=== PATIENT | female | born 1965 | race Caucasian/White ===

== ENCOUNTER 2016-10-01 11:37 | Inpatient (IN) | payer MEDICARE, BC ==
[~2016-10-01] VITALS: Ht 162.6 cm; Wt 110.5 kg
--- NOTE | 2016-10-01 12:05 | NUR ---
RECEIVED TO ROOM 2236 VIA FROM DIRECT ADMIT PER DR. HUBBARD. A/O X3. SKIN IS INTACT WITHOUT REDNESS. DENIES NEEDS.
--- NOTE | 2016-10-01 12:50 | NUR ---
IV SITED TO LEFT FOREARM AFTER ONE ATTEMPT PER RASHARD HARRIS RN. WAITING ON LAB DRAW PRIOR TO STARTING AB.
[2016-10-01] MEDS ORDERED: VALIUM10 MG PO (12:52)
[2016-10-01] MEDS ORDERED: PRAVASTATIN SOD10 MG PO (12:52)
[2016-10-01] MEDS ORDERED: HYDROCODONE-APA1 TAB PO (12:54)
[2016-10-01] MEDS ORDERED: NEURONTIN600 MG PO (12:54)
[2016-10-01] MEDS ORDERED: TOFRANIL50 MG PO (12:55)
[2016-10-01] MEDS ORDERED: GEODON60 MG PO (12:55)
[2016-10-01] MEDS ORDERED: TEMAZEPAM30 MG PO (12:56)
[2016-10-01] MEDS ORDERED: DEPAKOTE500 MG PO (12:57)
[2016-10-01] MEDS ORDERED: ROBAXIN-750750 MG PO (12:57)
[2016-10-01] MEDS ORDERED: BUTALB-APAP-CA1 EACH PO (12:58)
[2016-10-01] MEDS ORDERED: RESTASIS EYE DR30 EA EACH EYE (12:58)
[2016-10-01] MEDS ORDERED: PROAIR HFA8.5 GM INH (12:59)
[2016-10-01] MEDS ORDERED: ZYPREXA15 MG PO (12:59)
[2016-10-01] MEDS ORDERED: CALAN SR120 MG PO (12:59)
[2016-10-01] MEDS ORDERED: ADDERALL 20 MG20 M1 PO (13:00)
[2016-10-01 13:26] VITALS: BP 125/60; Ht 162.6 cm; Wt 110.5 kg
[2016-10-01 13:54] LABS: BASOPHILS 0.3 % (0.0-2.0); EOSINOPHILS 2.1 % (0-7); HEMATOCRIT 39.5 % (36.0-48.0); HEMOGLOBIN 12.7 g/dL (12-16); IMMATURE GRANULOCYTES 0.4 % (0-5); LYMPHOCYTES 18.2 % (15-50); MCH 32.4 pg (26.0-34.0); MCHC 32.2 g/dL (31.0-37.0); MCV 100.8 fL (80.0-100.0); MEAN PLATELET VOLUME 9.3 fL (7.4-10.4); MONOCYTES 9.5 % (2-11); NEUTROPHILS 69.5 % (40-80); RBC 3.92 10x6/uL (4.00-5.40); RDW 14.9 % (11.5-14.5); WBC 17.2 10x3/uL (4.8-10.8)
[2016-10-01 14:01] LABS: PLATELET COUNT 290 10x3/uL (130-400)
[2016-10-01 14:18] LABS: ALBUMIN 3.5 g/dL (3.4-5.0); ALKALINE PHOSPHATASE 99 U/L (46-116); ALT (SGPT) 31 U/L (10-68); CALC OSMOLALITY 274 mosm/kg (275-300); CALCIUM 8.2 mg/dL (8.5-10.1); CARBON DIOXIDE 30.9 mmol/L (21.0-32.0); CHLORIDE - SERUM 100 mmol/L (98-107); CREATININE - SERUM 0.7 mg/dL (0.6-1.3); GLUCOSE 128 mg/dL (74-106); POTASSIUM - SERUM 4.4 mmol/L (3.5-5.1); PROTEIN - SERUM 6.3 g/dL (6.4-8.2); SODIUM 137 mmol/L (136-145); UREA NITROGEN 9 mg/dL (7-18); eGFR NON AFRICAN AMERICAN > 90 mL/min (90-120)
[2016-10-01 15:18] LABS: T4 THYROXINE 7.1 ug/dL (4.7-13.3); THYROID STIMULATING HORMONE 2.06 uIU/mL (0.36-3.74)
[2016-10-01 16:48] VITALS: BP 125/66
--- NOTE | 2016-10-01 18:54 | NUR ---
SLEPT THROUGH SUPPER. TRAY AT BEDSIDE. NO CHANGES NOTED. DENIES NEEDS.
[2016-10-01 19:00] VITALS: BP 159/83
--- NOTE | 2016-10-01 22:55 | NUR ---
REC'D.DURING WALKING ROUNDS UP IN BATHROOM.UA OBTAINED CLEAN CATCH.WITH MINIMAL SOB ON ACTIVITY.WILL CONTINUE TO MONITOR FOR ANY CHGES. IN RESP. STATUS AND FOLLOW CURRENT PLAN OF CARE.
[2016-10-02] VITALS: BP 147/68
[2016-10-02 02:21] LABS: APPEARANCE HAZY (CLEAR); BILIRUBIN NEGATIVE (NEGATIVE); COLOR YELLOW (YELLOW); GLUCOSE NEGATIVE (NEGATIVE); KETONE NEGATIVE (NEGATIVE); LEUKOCYTE ESTERASE NEGATIVE (NEGATIVE); NITRITE NEGATIVE (NEGATIVE); PROTEIN TRACE mg/dL (NEGATIVE); SPECIFIC GRAVITY 1.025 (1.005-1.020); UROBILINOGEN NORMAL (NORMAL)
[2016-10-02 02:27] LABS: BACTERIA MANY /hpf (NONE SEEN); MUCUS <1+ /lpf (NONE SEEN); WHITE CELLS - URINE 0-5 /hpf (0-5)
[2016-10-02 04:00] VITALS: BP 142/75
[2016-10-02 05:57] LABS: BASOPHILS 0.1 % (0.0-2.0); EOSINOPHILS 0.2 % (0-7); HEMOGLOBIN 11.6 g/dL (12-16); IMMATURE GRANULOCYTES 0.4 % (0-5); MCH 32.6 pg (26.0-34.0); MCHC 32.2 g/dL (31.0-37.0); MCV 101.1 fL (80.0-100.0); MEAN PLATELET VOLUME 9.2 fL (7.4-10.4); MONOCYTES 7.5 % (2-11); NEUTROPHILS 80.8 % (40-80); PLATELET COUNT 258 10x3/uL (130-400); RBC 3.56 10x6/uL (4.00-5.40); RDW 14.8 % (11.5-14.5)
[2016-10-02 05:59] LABS: WBC 10.4 10x3/uL (4.8-10.8)
[2016-10-02 06:07] LABS: ALBUMIN 2.8 g/dL (3.4-5.0); ALKALINE PHOSPHATASE 82 U/L (46-116); CALC OSMOLALITY 270 mosm/kg (275-300); CALCIUM 7.9 mg/dL (8.5-10.1); CARBON DIOXIDE 32.9 mmol/L (21.0-32.0); CHLORIDE - SERUM 98 mmol/L (98-107); CREATININE - SERUM 0.6 mg/dL (0.6-1.3); GLUCOSE 146 mg/dL (74-106); POTASSIUM - SERUM 4.2 mmol/L (3.5-5.1); PROTEIN - SERUM 6.2 g/dL (6.4-8.2); SODIUM 135 mmol/L (136-145); UREA NITROGEN 7 mg/dL (7-18); eGFR NON AFRICAN AMERICAN > 90 mL/min (90-120)
[2016-10-02 06:09] LABS: ALT (SGPT) 22 U/L (10-68)
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
[2016-10-02 08:31] VITALS: BP 99/51
--- NOTE | 2016-10-02 09:00 | NUR ---
PT LETHARGIC AT THIS TIME ALL MEDS HELD. THIS NURSE FOUND PILLS IN UNLABELED BOTTLE WELL MORE PILLS IN A CONTAINER UNMARKED IN ROOM AND BEDSIDE TABLE. SENT TO PHARMACY FOR IDENTIFICATION. WHEN AROUSED PT DENIED TAKING ANY MEDS FROM UNMARKED BOTTLE. YELLED AT THIS NURSE FOR ASKING AND STATED THAT SHE WOULD TAKE A DRUG SCREEN ANYTIME. EXPLAINED TO PT THAT WE WERE NON ACCUSATORY JUST CONCERNED THAT SHE HAD DECREASED LOC FROM EARLIER THIS SHIFT.
[2016-10-02 12:59] VITALS: BP 119/63
--- NOTE | 2016-10-02 15:10 | NUR ---
Patient Name: VONDA ORO Admission Status: Elective Accout number: [id number] Admission Date: 10-01-2016 : 1965 Admission Diagnosis: Attending: TAWANA Current LOS: 1 Anticipated DC Date: 10-04-2016 Planned Disposition: Home Primary Insurance: MEDICARE A & B Discharge Planning Comments: CM MET WITH PATIENT REGARDING D/C NEEDS AND PLANS. PATIENT STATED SHE LIVES WITH HER SPOUSE GREGORY AND HE OR FAMILY WILL PICK HER UP AT DISCHARGE. PATIENT STATED THERE ARE 3 STEPS W/RAILS TO ENTER HOME AND 1 FLIGHT W/RAILS DOWNSTAIRS IN HOME WHICH PATIENT DOES NOT USE. PATIENTS PCP IS DR. HUBBARD AND PHARMACY IS [facility]. PATIENT STATED SHE IS INDEPENDENT WITH HER CARE AND HAS NO DME AT HOME. PATIENT HAS NOT HAD HOME HEALTH AND HAS REFUSED IT AT THIS TIME. CM WILL CONTINUE TO FOLLOW PATIENT WITH D/C NEEDS AND PLANS. PCP DR. [facility]- [phone] GREGORY (SPOUSE) [phone] Fire Sprinkler Inspector: Arely Heredia Is the patient Alert and Oriented? Yes 0 * How many steps to enter\exit or inside your home? 3 W/RAILS 0 * PCP DR. HUBBARD 0 * Pharmacy [facility] 0 * Preadmission Environment Home with Family 0 * ADLs Independent 0 * Equipment None 0 * List name and contact numbers for known caregivers / representatives who currently or will assist patient after discharge: GREGORY (SPOUSE) [phone] 0 * Community resources currently utilized None 0 * Additional services required to return to the preadmission environment? Yes 0 * Can the patient safely return to the preadmission environment? Yes 0 * Has this patient been hospitalized within the prior 30 days at any hospital? No 0 Grand Total: 0
--- NOTE | 2016-10-02 15:30 | NUR ---
REMOVED 4 VAPOR DEVICES FROM PT ROOM. LABLED AND BAGGED PLACED IN CASSETTE. PT STILL HARD TO AROUSE STATES I NEED PAIN MEDS CAUSE I HAVE A HEADACHE. EXPLAINED TO PT THAT SHE HAS BEED LETHARGIC ALL DAY LAB WAS DRAWN AND FSBS DONE WITH NO REACTION OR RESPONSE FROM PT. PT DENIES SUCH ACTION HOWEVER HAS BEEN VERIFIED PER CASE MANAGMENT AND RESPIRATORY THERAPY HOW LETHARGIC PT IS
--- NOTE | 2016-10-02 16:27 | NUR ---
PT REMAINS HARD TO AROUSE
[2016-10-02 16:29] VITALS: BP 114/55
[2016-10-02 19:00] VITALS: BP 120/53
--- NOTE | 2016-10-03 02:40 | NUR ---
REC'D. DURING WALKING ROUNDS ANGRY STATES THEY TOOK MY STUFF AND THOUGHT I WAS TAKING MY OWN MEDS FROM HOME AND I WASN'T.WILL CONTINUE TO MONITOR FOR ANY CHGES IN RESP. STATUS AND FOLLOW CURRENT PLAN OF CARE
[2016-10-03 04:00] VITALS: BP 109/65
[2016-10-03 05:01] LABS: BASOPHILS 0.4 % (0.0-2.0); EOSINOPHILS 3.5 % (0-7); HEMATOCRIT 35.4 % (36.0-48.0); HEMOGLOBIN 10.9 g/dL (12-16); IMMATURE GRANULOCYTES 0.6 % (0-5); LYMPHOCYTES 39.4 % (15-50); MCH 31.6 pg (26.0-34.0); MCHC 30.8 g/dL (31.0-37.0); MCV 102.6 fL (80.0-100.0); MEAN PLATELET VOLUME 9.1 fL (7.4-10.4); MONOCYTES 9.6 % (2-11); NEUTROPHILS 46.5 % (40-80); PLATELET COUNT 249 10x3/uL (130-400); RBC 3.45 10x6/uL (4.00-5.40); RDW 15.2 % (11.5-14.5); WBC 8.2 10x3/uL (4.8-10.8)
[2016-10-03 05:21] LABS: ALBUMIN 2.6 g/dL (3.4-5.0); ALKALINE PHOSPHATASE 73 U/L (46-116); ALT (SGPT) 22 U/L (10-68); BILIRUBIN - TOTAL 0.07 mg/dL (0.2-1.3); CALC OSMOLALITY 282 mosm/kg (275-300); CALCIUM 8.2 mg/dL (8.5-10.1); CARBON DIOXIDE 32.3 mmol/L (21.0-32.0); CHLORIDE - SERUM 106 mmol/L (98-107); CREATININE - SERUM 0.7 mg/dL (0.6-1.3); GLUCOSE 104 mg/dL (74-106); POTASSIUM - SERUM 3.9 mmol/L (3.5-5.1); PROTEIN - SERUM 5.3 g/dL (6.4-8.2); SODIUM 143 mmol/L (136-145); UREA NITROGEN 7 mg/dL (7-18); eGFR NON AFRICAN AMERICAN > 90 mL/min (90-120)
[2016-10-03 08:33] VITALS: BP 129/66
--- NOTE | 2016-10-03 09:13 | CN ---
PATIENT NAME:VONDA VILLALTA MEDICAL RECORD: [id number] : 69 LOCATION:[id number] ADMIT DATE: 10/01/16 ACCOUNT: [id number] CONSULTING PHYSICIAN: FRANNIE CUELLAR MD REFERRING PHYSICIAN: JOSE ALEJANDRO HUBBARD M.D. DATE OF CONSULTATION: 10/01/2016 Pulmonary Consultation CONSULT REQUESTING PHYSICIAN: Lela Butler MD REASON FOR CONSULTATION: Acute exacerbation of chronic obstructive pulmonary disease, possible pneumonia. HISTORY OF PRESENT ILLNESS: Ms. Villalta who is a very poor historian, very sleepy now. The patient says she is sick for the last few days. She is wheezing. She has shortness of breath with mild exertion. She also has hoarseness of her voice. She was seen in Dr. Hubbard's office today and admitted for possible pneumonia. Denies any fever or chill. There are no night sweats. There is no associated diarrhea. REVIEW OF SYSTEMS: Mainly in the history of present illness. PAST MEDICAL HISTORY: 1. Multiple psych issues. 2. Smoking, nicotine dependence. 3. Chronic obstructive pulmonary disease. 4. Hypertension. 5. Hyperlipidemia. 6. Fibromyalgia. 7. History of chronic bronchitis. 8. Peptic ulcer disease. 9. Gastroesophageal reflux disease. 10. Osteoarthritis. 11. Hypothyroidism. ALLERGIES: There is no known drug allergy, possible that she is allergic to prednisone, she says she becomes very hyper. PERSONAL AND SOCIAL HISTORY: The patient is still an everyday smoker. She is a nondrinker. FAMILY HISTORY: Noncontributory. PHYSICAL EXAMINATION: GENERAL: Now, the patient is lying comfortably. She is not in acute distress, but she is very sleepy and lethargic. VITAL SIGNS: The blood pressure is 125/60, pulse is 111, respirations 20, temperature ____, and SPO2 is 90% on 2 liters nasal cannula. HEENT: Conjunctivae are pink. Sclerae nonicteric. NECK: Supple. No JVD. CHEST: Excursion is minimal on both sides. There is wheeze on forceful expiration. HEART: Rhythm regular, normal sound, no murmur. ABDOMEN: Soft, bowel sounds present. No hepatosplenomegaly. CONSULT REPORT [id number] VONDA VILLALTA RECTAL: Deferred. EXTREMITIES: No cyanosis, no clubbing, no pedal edema. SKIN: Warm, normal turgor. CENTRAL NERVOUS SYSTEM: The patient is very sleepy, but she is arousable. There is no obvious cranial nerve abnormality. The gait was not tested. IMAGING: Chest radiograph: There is no acute infiltrate, no hyperinflation. LABORATORY DATA: CBC: The WBC is 17.2, hemoglobin 12.7, hematocrit 39.5, and the platelet count 290. Chemistry: Sodium 137, potassium 4.4, BUN is 9, creatinine is 0.7, glucose 128, and the D-dimer is 0.42. IMPRESSION: 1. Acute exacerbation of chronic obstructive pulmonary disease. 2. Tracheobronchitis. 3. Leukocytosis secondary tracheobronchitis. 4. Tobacco dependence syndrome. 5. Laryngitis. 6. Gastroesophageal reflux disease. RECOMMENDATIONS: 1. I will start methylprednisolone IV. We will watch her closely for any psych issue. 2. Adjust the dose of Levaquin to 750. 3. Albuterol/ipratropium nebulizer. 4. Start on Brovana and budesonide nebulizer. 5. Supplemental oxygen as required. Follow up labs in the morning. 6. DVT prophylaxis. Follow up on the ultrasound of the lower extremity. Dr. Hubbard, once again thank you for involving me in the care of Ms. Villalta. TRANSINT:[id number] Voice Confirmation ID: [id number] DOCUMENT ID: [id number] FRANNIE CUELLAR MD at 0913 CC: JOSE ALEJANDRO HUBBARD M.D. [id number] DICTATION DATE: 10/01/16 1504 ASSOCIATE MEDIA DIRECTOR: 10/01/16 1539 ADM IN [facility] [address] [id number]
[2016-10-03 11:55] VITALS: BP 123/61
[2016-10-03 16:53] VITALS: BP 131/68
[2016-10-03 17:26] LABS: UDS - AMPHET NEGATIVE QUAL (NEGATIVE); UDS - BARB POSITIVE QUAL (NEGATIVE); UDS - BENZO POSITIVE QUAL (NEGATIVE); UDS - COCAINE NEGATIVE QUAL (NEGATIVE); UDS - METH NEGATIVE QUAL (NEGATIVE); UDS - OPIATE POSITIVE QUAL (NEGATIVE); UDS - PCP NEGATIVE QUAL (NEGATIVE); UDS - THC NEGATIVE QUAL (NEGATIVE)
--- NOTE | 2016-10-03 18:44 | NUR ---
PATIENT REQUESTING FIORICET. LIGHTS ARE OFF IN ROOM, PT HAS SHEET OVER HER FACE TO BLOCK LIGHT.
[2016-10-03 19:00] VITALS: BP 115/70
[2016-10-04 04:00] VITALS: BP 110/72
[2016-10-04 05:51] LABS: BASOPHILS 0.5 % (0.0-2.0); EOSINOPHILS 5.5 % (0-7); HEMATOCRIT 38.5 % (36.0-48.0); HEMOGLOBIN 12.1 g/dL (12-16); IMMATURE GRANULOCYTES 0.8 % (0-5); LYMPHOCYTES 34.8 % (15-50); MCH 31.7 pg (26.0-34.0); MCHC 31.4 g/dL (31.0-37.0); MCV 100.8 fL (80.0-100.0); MEAN PLATELET VOLUME 9.3 fL (7.4-10.4); MONOCYTES 11.9 % (2-11); NEUTROPHILS 46.5 % (40-80); PLATELET COUNT 282 10x3/uL (130-400); RBC 3.82 10x6/uL (4.00-5.40); RDW 14.7 % (11.5-14.5); WBC 7.9 10x3/uL (4.8-10.8)
[2016-10-04 06:18] LABS: ALBUMIN 2.8 g/dL (3.4-5.0); ALKALINE PHOSPHATASE 75 U/L (46-116); ALT (SGPT) 22 U/L (10-68); CALC OSMOLALITY 283 mosm/kg (275-300); CARBON DIOXIDE 29.7 mmol/L (21.0-32.0); CHLORIDE - SERUM 106 mmol/L (98-107); CREATININE - SERUM 0.7 mg/dL (0.6-1.3); GLUCOSE 109 mg/dL (74-106); POTASSIUM - SERUM 4.4 mmol/L (3.5-5.1); PROTEIN - SERUM 5.7 g/dL (6.4-8.2); SODIUM 143 mmol/L (136-145); UREA NITROGEN 7 mg/dL (7-18); eGFR NON AFRICAN AMERICAN > 90 mL/min (90-120)
--- NOTE | 2016-10-04 08:00 | NUR ---
WITHOUT DISTRESS.DENIES NEEDS.CALL LIGHT IN REACH
--- NOTE | 2016-10-04 08:00 | NUR ---
PT AWAKE AND ALERT NO ACUTE DISTRESS NOTED VOICES ALL NEEDS TO STAFF WITH NO DIFFICULTY NOTED. MOBILE PER SELF AMBULATION WITH STEADY GAIT IS UP ADLIB. PIV PATENT TO FLUSH. O2 @ 2LPM VIA NASAL CANULA WHEN PT CHOOSES TO WEAR IT. PT HAS HISTORY THIS STAY OF REFUSING MEDS AND ATTEMPTING TO MANIPULATE STAFF WITH MEDICATION TIMES.
[2016-10-04 08:04] VITALS: BP 144/72
--- NOTE | 2016-10-04 08:18 | NUR ---
PT MARYBEL CHOI STATES I TAKE THAT AT NIGHT I WILL NOT TAKE IT IN THE MORNING.
--- NOTE | 2016-10-04 10:11 | NUR ---
RESTING QUIETLY IN BED WITH EYES CLOSED RESPS EVEN AND NON LABORED. CALL LIGHT IN REACH SIDE RAILS UP X 2
[2016-10-04 11:18] LABS: HEPATITIS C ANTIBODY <0.1 (0.0-0.9)
[2016-10-04 11:43] VITALS: BP 131/70
[2016-10-04] MEDS ORDERED: BROVANA15 MCG/2 M INH (11:46)
[2016-10-04] MEDS ORDERED: IPRAT-ALBUT 0.5-3 ML UPD (11:47)
[2016-10-04] MEDS ORDERED: PULMICORT0.5 MG/21 UPD (11:48)
[2016-10-04] MEDS ORDERED: LEVAQUIN750 MG PO (11:48)
[2016-10-04] MEDS ORDERED: MEDROL DOSE PACK4 MG PO (11:49)
--- NOTE | 2016-10-04 12:31 | NUR ---
DISCHARGE ORDERS RECIEVED PER DR IRIZARRY AWAITING DR CUELLAR TO SIGN OFF ON DISCHARGE.
--- NOTE | 2016-10-04 13:08 | NUR ---
CM REASSESSMENT NOTE: PATIENT IS DISCHARGING HOME TODAY. FAMILY IS DRIVING HER HOME AND PATIENT DENIES ANY NEEDS AT DISCHARGE.
--- NOTE | 2016-10-04 13:29 | NUR ---
PT DISCHARGED AT THIS TIME EXPRESSED UNDERSTANDING OF D/C INSTRUCTIONS AND NEW MEDICATIONS. IV D/C TIP INTACT. LEFT UNIT VIA WHEELCHAIR PER STAFF TO PRIVATE VEHICLE
--- NOTE | 2016-11-15 15:43 | DS ---
PATIENT:VONDA ORO :69 MEDICAL RECORD: [id number] DISCHARGE SUMMARY ADMISSION DATE: 10/01/16 DISCHARGE DATE: 10/04/16 DATE OF ADMISSION: 10/01/2016 DATE OF DISCHARGE: 10/04/2016 DIAGNOSES: 1. Pneumonia. 2. Hypoxia. 3. Nicotine dependency. 4. Hyperlipidemia. 5. Hypertension. 6. Peptic ulcer disease. CONSULTS: Bhargav Christopher MD. IMAGING STUDIES: 1. Venous Doppler, which was negative for deep vein thrombosis. 2. Chest x-ray, which showed no acute cardiopulmonary disease. 3. Ultrasound of the liver which shows hepatomegaly with fatty infiltrates. HOSPITAL COURSE: The full H&P is listed elsewhere in the chart for this female patient who was admitted with a several day history of wheezing and shortness of breath, was noted to have pneumonia and was admitted for IV antibiotic therapy. She was started on IV steroids, DuoNeb updrafts. DVT prophylaxis was instituted and broad-spectrum antibiotic therapy, which included levofloxacin. She did have GI and DVT prophylaxis. Her clinical condition began to improve. Her antibiotic therapy was deescalated. She was thought to be stable for discharge to home to follow back up in the outpatient setting with Dr. Campoverde and to see Dr. Christopher in 2-4 weeks. See med rec. TRANSINT:[id number] Voice Confirmation ID: [id number] DOCUMENT ID: [id number] Dictated By: RUSLAN SHARMA I have interviewed/examined the above patient and agree with these documented findings. KENRICK IRIZARRY MD at 1515 at 1543 CC: [id number] DICTATION DATE: 11/14/16 0845 EMPLOYMENT CLERK: 11/14/16 2347 DIS IN 10/04/16 [facility] [address] [place] [address]
== END 2016-10-04 13:30 | disposition home or self-care (01) | DRG 190 ==
LOC: D.OPS 11:37 → D.MS 11:43
PROVIDERS: Family Medicine; ADMIT Family Medicine
DX: J44.0 Chronic obstructive pulmonary disease with (acute) lower respiratory infection (principal); J18.9 Pneumonia, unspecified organism; F17.203 Nicotine dependence unspecified, with withdrawal; Z68.41 Body mass index [BMI] 40.0-44.9, adult; R09.02 Hypoxemia; J44.1 Chronic obstructive pulmonary disease with (acute) exacerbation; M79.7 Fibromyalgia; I10 Essential (primary) hypertension; E03.9 Hypothyroidism, unspecified; E78.5 Hyperlipidemia, unspecified; K21.9 Gastro-esophageal reflux disease without esophagitis; M19.90 Unspecified osteoarthritis, unspecified site; E11.9 Type 2 diabetes mellitus without complications; E66.01 Morbid (severe) obesity due to excess calories

== ENCOUNTER → 2017-03-13 08:31 | Outpatient (CLI) | payer SELFPAY ==
[2016-10-01 13:26] VITALS: BMI 41.8
[~2017-03-13 08:31] MED LIST: ADDERALL 20 MG20 M1 PO; BROVANA15 MCG/2 M INH; BUTALB-APAP-CA1 EACH PO; CALAN SR120 MG PO; DEPAKOTE500 MG PO; GEODON60 MG PO; HYDROCODONE-APA1 TAB PO; IPRAT-ALBUT 0.5-3 ML UPD; LEVAQUIN750 MG PO; MEDROL DOSE PACK4 MG PO; NEURONTIN600 MG PO; PRAVASTATIN SOD10 MG PO; PROAIR HFA8.5 GM INH; PULMICORT0.5 MG/21 UPD; RESTASIS EYE DR30 EA EACH EYE; ROBAXIN-750750 MG PO; TEMAZEPAM30 MG PO; TOFRANIL50 MG PO; VALIUM10 MG PO; ZYPREXA15 MG PO
--- NOTE | 2017-03-13 09:46 | NUR ---
Nutrition education for bariatric surgery: Pt seems to be under the influence of pain medication. Pt is slurring her words and seems to be falling asleep at times. Pt is having a lot of trouble understanding what I am saying. Pt states she has chronic pain and is on a lot of medication for it. Pt states she has not eaten a nonstarchy vegetable for 30 years. Pt states she eats chocolate, ice cream and any other sweets for meals instead of eating meals. Pt likes pasta, rice, potatoes and meat. Pt is not very happy with me as I am telling her the diet progression after surgery. Pt is very argumentative with me. Pt is very negative. Ht: 5'4" Wt: 245# IBW: 120# +/-10% BMI: 42.1 PMH: Fibromyalgia, chronic pain, bipolar Reviewed post-op diet phases. Reviewed food lists for all phases. Discussed liquids between meals; 1/2 cup meal size; pureed foods; protein needs; vitamin, mineral supplements; stomach size; pouch stretching; no sweets or high fat foods; no alcohol; reviewed sample menus. Pt remains very unhappy with all the restrictions re: post-op diet. Pt feels she will not be able to follow such a strict eating plan. RDN again reviewed pre/post op diet and reinforced that these changes must be made in order to be successful with residential weight loss and maintenance. Questions answered. RDN feels pt is not going to be successful with residential weight loss due to her negative attitude about diet changes. Provided pt with printed diet information and RDN name and phone number. RDN will be available if needed. Thank you for the consult.
== END ==
LOC: D.FANS 08:31
DX: Z01.818 Encounter for other preprocedural examination (principal)

== ENCOUNTER → 2017-05-23 16:52 | Outpatient (CLI) | payer MEDICARE, BC ==
[2016-10-01 13:26] VITALS: BMI 41.8
== END | disposition home or self-care (01) ==
LOC: D.MAMMO 08:15
DX: Z12.31 Encounter for screening mammogram for malignant neoplasm of breast (principal)

== ENCOUNTER → 2017-06-25 12:49 | Outpatient (CLI) | payer MEDICARE, BC ==
[2016-10-01 13:26] VITALS: BMI 41.8
[~2017-06-25 12:49] MED LIST changes: +BIOTIN5 MG PO; +VITAMIN D250000 UNIT PO; +ZEBETA10 MG PO; +ZIAC 10-6.25 MG1 TAB PO
== END | disposition home or self-care (01) ==
LOC: D.RT 05-29 11:00
DX: J44.9 Chronic obstructive pulmonary disease, unspecified (principal)

== ENCOUNTER → 2017-07-09 10:44 | Outpatient (CLI) | payer MEDICARE, BC ==
[2016-10-01 13:26] VITALS: BMI 41.8
[2017-07-09 11:04] LABS: BASOPHILS 0.2 % (0-2); EOSINOPHILS 1.3 % (0-7); HEMATOCRIT 43.4 % (36.0-48.0); HEMOGLOBIN 14.2 g/dL (12-16); IMMATURE GRANULOCYTES 0.4 % (0-5); LYMPHOCYTES 11.6 % (15-50); MCH 32.3 pg (26.0-34.0); MCHC 32.7 g/dL (31.0-37.0); MCV 98.6 fL (80.0-100.0); MEAN PLATELET VOLUME 9.3 fL (7.4-10.4); MONOCYTES 6.7 % (2-11); NEUTROPHILS 79.8 % (40-80); PLATELET COUNT 239 10x3/uL (130-400); RDW 13.8 % (11.5-14.5); WBC 16.6 10x3/uL (4.8-10.8)
[2017-07-09 11:36] LABS: CALC OSMOLALITY 278 mosm/kg (275-300); CALCIUM 9.2 mg/dL (8.5-10.1); CARBON DIOXIDE 28.2 mmol/L (21.0-32.0); CHLORIDE - SERUM 102 mmol/L (98-107); CHOL - HDL RATIO 5.6 ratio (2.3-4.1); CHOLESTEROL, TOTAL 228 mg/dL (0-200); CREATININE - SERUM 0.6 mg/dL (0.6-1.3); GLUCOSE 124 mg/dL (74-106); HDL CHOLESTEROL 41 mg/dL (32-96); LDL CHOLESTEROL 108 mg/dL (0-100); LDL-HDL RATIO 2.6 ratio (1.5-3.5); POTASSIUM - SERUM 4.3 mmol/L (3.5-5.1); SODIUM 140 mmol/L (136-145); T4 THYROXINE 7.4 ug/dL (4.7-13.3); THYROID STIMULATING HORMONE 1.83 uIU/mL (0.36-3.74); TRIGLYCERIDE 398 mg/dL (30-200); UREA NITROGEN 9 mg/dL (7-18); eGFR NON AFRICAN AMERICAN > 90 mL/min (90-120)
[2017-07-09 11:43] LABS: HELICOBACTER PYLORI IGG NEGATIVE (NEGATIVE)
[2017-07-10 06:15] LABS: FOLATE (FOLIC ACID) - SERUM 4.9 ng/mL (>3.0)
[2017-07-10 08:17] LABS: VITAMIN D 25 HYDROXY 32.6 ng/mL (30.0-100.0)
== END | disposition home or self-care (01) ==
LOC: D.LAB 10:44
PROVIDERS: Surgery
DX: I10 Essential (primary) hypertension (principal); E78.5 Hyperlipidemia, unspecified; K21.9 Gastro-esophageal reflux disease without esophagitis; E66.01 Morbid (severe) obesity due to excess calories

== ENCOUNTER → 2017-07-17 10:11 | Outpatient (CLI) | payer MEDICARE, BC ==
[2016-10-01 13:26] VITALS: BMI 41.8
== END | disposition home or self-care (01) ==
LOC: D.RAD 10:00
DX: E66.01 Morbid (severe) obesity due to excess calories (principal)

== ENCOUNTER 2017-07-24 07:00 | Day surgery (SDC) | payer MEDICARE, BC ==
[~2017-07-24] VITALS: Ht 162.6 cm; Wt 110.0 kg
[~2017-07-24 07:00] MED LIST changes: -BIOTIN5 MG PO; -VITAMIN D250000 UNIT PO; -ZEBETA10 MG PO; -ZIAC 10-6.25 MG1 TAB PO
[2017-07-24] MEDS ORDERED: VITAMIN D250000 UNIT PO (08:06)
[2017-07-24] MEDS ORDERED: BIOTIN5 MG PO (08:06)
[2017-07-24 08:07] LABS: HEMATOCRIT 40.8 % (36.0-48.0); HEMOGLOBIN 13.3 g/dL (12-16); MCH 32.3 pg (26.0-34.0); MCHC 32.6 g/dL (31.0-37.0); MEAN PLATELET VOLUME 9.5 fL (7.4-10.4); RBC 4.12 10x6/uL (4.00-5.40); RDW 14.2 % (11.5-14.5); WBC 9.6 10x3/uL (4.8-10.8)
[2017-07-24 08:08] VITALS: BP 148/86; Ht 162.6 cm; Wt 110.0 kg
--- NOTE | 2017-07-24 10:12 | NUR ---
1005 BACK FROM EGD RESP EVEN AND NONLABORED. HOB ELEVATEDD. ICE WATER SERVED. C/L IN REACH.
--- NOTE | 2017-07-24 12:31 | OP ---
PATIENT NAME: VONDA ORO MEDICAL RECORD: [id number] :69 LOCATION:D.[facility] ADMISSION DATE: SURGEON: NERY SHAH MD DATE OF OPERATION: 07/24/2017 SURGEON: Nery Shah MD PREOPERATIVE DIAGNOSES: 1. Gastroesophageal reflux disease. 2. Morbid obesity, body mass index 40-44.9. 3. Essential hypertension. 4. Hyperlipidemia. POSTOPERATIVE DIAGNOSES: 1. Gastroesophageal reflux disease. 2. Morbid obesity, body mass index 40-44.9. 3. Essential hypertension. 4. Hyperlipidemia. PROCEDURE PERFORMED: EGD with biopsy. ANESTHESIA: Total intravenous anesthesia. Case was contaminated. ESTIMATED BLOOD LOSS: Minimal. OPERATIVE COURSE: After consent was obtained, the patient was taken to the endoscopy suite. A timeout was taken to confirm the correct patient and procedure. A bite block was placed. Hurricaine [place] was administered. The patient was placed in left lateral decubitus position. After adequate anesthesia had been given, the scope was passed through the bite block ad into the posterior oropharynx under direct endoscopic vision. It was advanced posterior to the epiglottis, advanced through the esophagus and the stomach. The stomach was insufflated. The scope was passed through the pylorus. The duodenum was inspected. The duodenum appeared within normal limits. Multiple cold biopsies were taken. The scope was withdrawn to the prepyloric region. There was some mild antritis noted. Multiple biopsies were taken. The stomach was inspected, it appeared to be within normal limits. Multiple cold biopsies were taken. Minimal gastritis was noted. The scope was retroflexed. There was a possible small sliding hiatal hernia. The stomach was desufflated. The scope was withdrawn to the GE junction. There was grade I esophagitis at the GE junction, there was some abnormality of the Z line and minimal linear ulcerations. Multiple biopsies were taken at GE junction. Next, the scope was slowly withdrawn to the esophagus. There was no abnormality to the esophagus identified. At this time, the scope was removed and the procedure was terminated. At the end of the procedure, all needle and instrument counts were correct. No complications occurred. The patient tolerated the procedure well. Postoperatively, she was transferred to the recovery room in satisfactory condition. TRANSINT:[id number] Voice Confirmation ID: [id number] DOCUMENT ID: [id number] OPERATIVE REPORT [id number] VONDA ORO NERY SHAH MD at 1231 CC: [id number] DICTATION DATE: 07/24/17 0951 COLOR RECEIVER: 07/24/[address] [place] [address] 07/24/17 [id number] [place] [address]
== END 2017-07-24 10:42 | disposition home or self-care (01) ==
LOC: D.OPS 07:00
PROVIDERS: Surgery
DX: K21.0 Gastro-esophageal reflux disease with esophagitis (principal); K29.70 Gastritis, unspecified, without bleeding; E66.01 Morbid (severe) obesity due to excess calories; Z68.41 Body mass index [BMI] 40.0-44.9, adult; I10 Essential (primary) hypertension; E78.5 Hyperlipidemia, unspecified; Z01.812 Encounter for preprocedural laboratory examination

== ENCOUNTER 2017-08-28 05:18 | Inpatient (IN) | payer MEDICARE, BC ==
[2017-08-27 10:59] LABS: CALC OSMOLALITY 276 mosm/kg (275-300); CALCIUM 9.4 mg/dL (8.5-10.1); CARBON DIOXIDE 34.1 mmol/L (21.0-32.0); CHLORIDE - SERUM 101 mmol/L (98-107); CREATININE - SERUM 0.7 mg/dL (0.6-1.3); GLUCOSE 106 mg/dL (74-106); HEMATOCRIT 41.4 % (36.0-48.0); HEMOGLOBIN 13.6 g/dL (12-16); MCH 32.5 pg (26.0-34.0); MCHC 32.9 g/dL (31.0-37.0); MEAN PLATELET VOLUME 9.6 fL (7.4-10.4); POTASSIUM - SERUM 4.3 mmol/L (3.5-5.1); RBC 4.18 10x6/uL (4.00-5.40); RDW 13.9 % (11.5-14.5); SODIUM 139 mmol/L (136-145); UREA NITROGEN 11 mg/dL (7-18); WBC 10.3 10x3/uL (4.8-10.8); eGFR NON AFRICAN AMERICAN > 90 mL/min (90-120)
[~2017-08-28] VITALS: Ht 162.6 cm; Wt 110.0 kg
[~2017-08-28 05:18] MED LIST changes: +BIOTIN5 MG PO; +VITAMIN D250000 UNIT PO
[2017-08-28] MEDS ORDERED: ZIAC 10-6.25 MG1 TAB PO (07:45)
[2017-08-28 07:59] VITALS: BP 85/56; BMI 42.0
--- NOTE | 2017-08-28 10:50 | NUR ---
OPA OUT AT THIS TIIME
[2017-08-28 12:38] VITALS: BP 111/58
[2017-08-28 12:42] VITALS: BP 111/58; Ht 162.6 cm; Wt 110.0 kg
--- NOTE | 2017-08-28 12:46 | NUR ---
PT ADMITTED TO FLOOR, ADMISSION COMPLETE AT THIS TIME
[2017-08-28 20:00] VITALS: BP 128/65
--- NOTE | 2017-08-28 22:05 | NUR ---
REC'D LYING IN BED. ALERT AND ORIENTED X4. REPORTED PAIN BUT DID NOT GIVE ME A RANGE. NO DISTRESS NOTED. INSTRUCTED TO CALL IF NEEDED ANYTHING,VERBALIZED UNDERSTANDING. WILL CONT TO MONITOR. BED LOW, LOCKED, CALL LIGHT IN REACH.
[2017-08-29 04:00] VITALS: BP 149/80
[2017-08-29 05:04] LABS: BASOPHILS 0.1 % (0-2); EOSINOPHILS 0.3 % (0-7); HEMATOCRIT 38.2 % (36.0-48.0); HEMOGLOBIN 12.3 g/dL (12-16); IMMATURE GRANULOCYTES 0.4 % (0-5); LYMPHOCYTES 12.5 % (15-50); MCH 31.7 pg (26.0-34.0); MCHC 32.2 g/dL (31.0-37.0); MCV 98.5 fL (80.0-100.0); MEAN PLATELET VOLUME 9.7 fL (7.4-10.4); MONOCYTES 7.7 % (2-11); PLATELET COUNT 258 10x3/uL (130-400); RBC 3.88 10x6/uL (4.00-5.40); RDW 13.8 % (11.5-14.5)
[2017-08-29 05:17] LABS: WBC 13.6 10x3/uL (4.8-10.8)
[2017-08-29 05:20] LABS: ALKALINE PHOSPHATASE 104 U/L (46-116); ALT (SGPT) 113 U/L (10-68); CALC OSMOLALITY 271 mosm/kg (275-300); CALCIUM 8.8 mg/dL (8.5-10.1); CARBON DIOXIDE 31.5 mmol/L (21.0-32.0); CHLORIDE - SERUM 100 mmol/L (98-107); CREATININE - SERUM 0.6 mg/dL (0.6-1.3); GLUCOSE 124 mg/dL (74-106); POTASSIUM - SERUM 4.1 mmol/L (3.5-5.1); PROTEIN - SERUM 6.2 g/dL (6.4-8.2); SODIUM 136 mmol/L (136-145); UREA NITROGEN 9 mg/dL (7-18); eGFR NON AFRICAN AMERICAN > 90 mL/min (90-120)
--- NOTE | 2017-08-29 06:27 | NUR ---
EYES CLOSED RESPIRATIONS WITH EASE AND UNLABORED.
--- NOTE | 2017-08-29 10:47 | NUR ---
NUTRITION MONITORING & EVAL SPOKE WITH PT RE:POST GASTRIC SLEEVE DIET. PT RECALLS OUTPT COUNSELING, STATES SHE HAS WORKBOOK AT HOME. NO QUESTIONS AT THIS TIME. RD FOLLOWING
[2017-08-29] MEDS ORDERED: ZEBETA10 MG PO (12:38)
[2017-08-29] MEDS ORDERED: HYDROCODONE-APA1 TAB PO (12:40)
[2017-08-29 13:19] VITALS: BP 149/83
--- NOTE | 2017-08-29 13:57 | NUR ---
PT HAD IV REMOVED WITH TIP INTACT. DISCHARGE INSTRUCTIONS REVIEWED AND QUESTIONS SIGNED. AWAITING RIDE
== END 2017-08-29 14:18 | disposition home or self-care (01) | DRG 621 ==
LOC: D.OPS 05:18 → D.PAN 08:00 → D.OPS 08:30 → D.MS 12:35 → D.OPS 12:59 → D.MS 13:00
PROVIDERS: Anesthesiology; ADMIT Surgery
PROC: 0DB64Z3 Excision of Stomach, Percutaneous Endoscopic Approach, Vertical (ICD-10-PCS; principal; 2017-08-28 08:30)
DX: E66.01 Morbid (severe) obesity due to excess calories (principal); Z68.41 Body mass index [BMI] 40.0-44.9, adult; I10 Essential (primary) hypertension; M19.90 Unspecified osteoarthritis, unspecified site; K21.9 Gastro-esophageal reflux disease without esophagitis; E11.9 Type 2 diabetes mellitus without complications; E78.5 Hyperlipidemia, unspecified; M79.7 Fibromyalgia

== ENCOUNTER → 2017-12-03 12:12 | Outpatient (CLI) | payer MEDICARE, BC ==
[2017-08-28 12:42] VITALS: BMI 41.6
[~2017-12-03 12:12] MED LIST changes: +ZEBETA10 MG PO; +ZIAC 10-6.25 MG1 TAB PO
[2017-12-03 12:44] LABS: BASOPHILS 0.8 % (0-2); EOSINOPHILS 2.7 % (0-7); HEMATOCRIT 42.4 % (36.0-48.0); HEMOGLOBIN 13.9 g/dL (12-16); IMMATURE GRANULOCYTES 0.3 % (0-5); LYMPHOCYTES 36.6 % (15-50); MCHC 32.8 g/dL (31.0-37.0); MCV 94.4 fL (80.0-100.0); MEAN PLATELET VOLUME 9.5 fL (7.4-10.4); MONOCYTES 7.2 % (2-11); NEUTROPHILS 52.4 % (40-80); RBC 4.49 10x6/uL (4.00-5.40); RDW 14.8 % (11.5-14.5); WBC 11.4 10x3/uL (4.8-10.8)
[2017-12-03 12:53] LABS: CREATININE - SERUM 0.6 mg/dL (0.6-1.3)
[2017-12-03 13:00] LABS: PLATELET COUNT 386 10x3/uL (130-400)
== END | disposition home or self-care (01) ==
LOC: D.LAB 12:12
PROVIDERS: Surgery
DX: Z01.812 Encounter for preprocedural laboratory examination (principal); Z00.00 Encounter for general adult medical examination without abnormal findings; K21.9 Gastro-esophageal reflux disease without esophagitis; I10 Essential (primary) hypertension; E78.5 Hyperlipidemia, unspecified